=== PATIENT | female | born 1970 | race African-American/Black ===

== ENCOUNTER 2019-09-03 10:51 | Emergency (ER) | payer BC ==
--- NOTE | 2019-09-03 13:51 | RAD REPORT ---
EXAM DESCRIPTION: Raul Single View09/03/2019 1:27 pm CLINICAL HISTORY: Hypertension COMPARISON: none FINDINGS: Left lateral lung base is hazy. The remainder of the lungs appear clear of acute infiltrate. The heart is borderline enlarged IMPRESSION: Left lateral lung base is hazy most likely secondary to overlying soft tissue. If the pa tient has clinical symptoms to suggest a left basilar infiltrate then PA and lateral chest series wou ld be recommended
[2019-09-03 13:53] LABS: Absolute Lymphocytes (CBC) 1.7 K/uL (0.7-4.9); Basophils % 0.6 % (0-1.3); Hematocrit 35.4 % (36.0-45.0); Lymphocytes % 37.6 % (15.3-44.8); MPV 9.1 fL (7.6-11.3); RBC Red Blood Cell Count 4.27 M/uL (3.86-4.86)
[2019-09-03 14:06] LABS: ALT/SGPT 51 U/L (12-78); AST/SGOT 34 U/L (15-37); Albumin 3.7 g/dL (3.4-5.0); Alkaline Phosphatase 48 U/L (45-117); BUN Blood Urea Nitrogen 12 mg/dL (7-18); Bicarbonate 26 mmol/L (21-32); Bilirubin Direct < 0.1 mg/dL (0-0.2); Bilirubin Total 0.3 mg/dL (0.2-1.0); Glucose Level 83 mg/dL (74-106); Magnesium 2.2 mg/dL (1.8-2.4); NT PRO-BNP 102 pg/mL (<125); Sodium Level 142 mmol/L (136-145); Troponin (Emerg Dept Use Only) < 0.02 ng/mL (0.0-0.045)
[2019-09-03] MEDS ORDERED: FUROSEMIDE 20 MG TABLET ONE (14:32)
--- NOTE | 2019-09-03 15:10 | ER ---
Nurse's Notes [facility] Name: Angeles Monte Age: 49 yrs Sex: Female : 1970 Arrival Date: 09/03/2019 Time: 10:55 Bed 4 Private MD: Diagnosis: Hypertensive heart disease;Peripheral Edema Presentation: 09/02 11:12 Chief complaint: Patient states: sent by her PCP for her HTN 210/180. Went to see her sv PCP for BLE swelling, tingling and "black spots on her legs." for 1 week. Coronavirus screen: Proceed with normal triage. Patient denies a cough. Patient denies shortness of breath or difficulty breathing. Patient denies measured and/or subjective temperature greater than 100.4F prior to today's visit. Patient denies travel on a cruise ship or to a country the [facility] currently lists as an affected area. Patient denies contact with known and/or suspected case of COVID-19. Ebola Screen: No symptoms or risks identified at this time. Risk Assessment: Do you want to hurt yourself or someone else? Patient reports no desire to harm self or others. Onset of symptoms was August 27, 2019. 11:12 Method Of Arrival: Ambulatory sv 11:12 Acuity: DANYELL 2 sv 11:15 Initial Sepsis Screen: Does the patient meet any 2 criteria? No. Patient's initial sv sepsis screen is negative. Does the patient have a suspected source of infection? No. Patient's initial sepsis screen is negative. Triage Assessment: 11:15 General: Appears in no apparent distress. comfortable, Behavior is calm, cooperative, sv appropriate for age. Pain: Denies pain. Neuro: Level of Consciousness is awake, alert, obeys commands, Oriented to person, place, time, situation, Gait is steady. Respiratory: Respiratory effort is even, unlabored. 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 - Social history:: Smoking status: Patient denies any tobacco usage or history of. Screenin:44 Abuse screen: Denies threats or abuse. Denies injuries from another. Nutritional iw screening: No deficits noted. Tuberculosis screening: No symptoms or risk factors identified. Fall Risk None identified. Assessment: 13:41 General: Appears in no apparent distress. Behavior is calm, cooperative. Pain: iw Complains of pain in right leg and left leg. Neuro: Level of Consciousness is awake, alert, obeys commands, Oriented to person, place, time, situation, Moves all extremities. Full function. Cardiovascular: Patient's skin is warm and dry. Cardiovascular: Edema. Respiratory: Respiratory effort is even, unlabored, Respiratory pattern is regular, symmetrical. Derm: Skin is intact. Musculoskeletal: Range of motion: intact in all extremities. 14:41 Reassessment: Patient appears in no apparent distress at this time. Patient and/or iw family updated on plan of care and expected duration. Pain level reassessed. Patient is alert, oriented x 3, equal unlabored respirations, skin warm/dry/pink. Vital Signs: 11:15 BP 165 / 106; Pulse 68; Resp 18; Temp 99(TE); Pulse Ox 96% ; Weight 102.51 kg; Height 5 sv ft. 10 in. (177.80 cm); 13:41 BP 157 / 109; Pulse 74; Resp 16; Pulse Ox 100% on R/A; iw 15:27 BP 173 / 102; Pulse 63; Resp 16; Temp 97.7(O); Pulse Ox 99% on R/A; mh5 11:15 Body Mass Index 32.43 (102.51 kg, 177.80 cm) sv ED Course: 10:55 Patient arrived in ED. as 11:12 Arm band placed on. sv 11:14 Triage completed. sv 12:57 Trina Mota, RN is Primary Nurse. iw 13:07 Dany Gomez MD is Attending Physician. kdr 13:27 XRAY Chest (1 view) In Process Unspecified. EDMS 15:25 Patient has correct armband on for positive identification. Placed in gown. Bed in low mh5 position. Call light in reach. Side rails up X 1. Warm blanket given. radiation monitor on. Pulse ox on. NIBP on. 15:26 Initial lab(s) drawn, by ED staff, sent to lab. Urine collected: clean catch specimen, mh5 clear, EKG done, by ED staff, reviewed by Dany Gomez MD. 15:42 IV discontinued, intact, bleeding controlled, No redness/swelling at site. Pressure em dressing applied. 15:45 No provider procedures requiring assistance completed. iw Administered Medications: 14:29 Drug: LaSIX 20 mg Route: PO; iw 15:30 Follow up: Response: No adverse reaction em 15:39 Drug: Norvasc 5 mg Route: PO; iw 15:43 Follow up: Response: Medication administered at discharge. em Outcome: 15:09 Discharge ordered by . kdr 15:42 Discharged to home ambulatory. em 15:42 Condition: good 15:42 Discharge instructions given to patient, Instructed on discharge instructions, follow up and referral plans. medication usage, Demonstrated understanding of instructions, follow-up care, medications, Prescriptions given X 1. 15:45 Patient left the ED. iw Signatures: Dispatcher [employer] Merly Seo, RN Dany Sharif MD MD kdr Munoz, Edgar RN Ange Gandara Irene, RN RN iw Martinez, Maria [facility] Corrections: (The following items were deleted from the chart) 11:18 11:12 Acuity: DANYELL 3 sv sv
--- NOTE | 2019-09-03 15:11 | EDPHYS ---
Physician Documentation [facility] Name: Angeles Monte Age: 49 yrs Sex: Female : 1970 Arrival Date: 09/03/2019 Time: 10:55 Bed 4 Private MD: ED Physician Dany Gomez HPI: 09/02 16:04 This 49 yrs old Black Female presents to ER via Ambulatory with complaints of High kdr Blood Pressure. 16:04 The patient has elevated blood pressure and discovered this at home. Onset: The kdr symptoms/episode began/occurred at an unknown time. The patient went to an appointment earlier today and was noted to be very hypertensive. She was sent to the ED for evaluation and treatment. Her only c/o is slight BRANCH. Modifying factors: The symptoms are aggravated by. 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 - Social history:: Smoking status: Patient denies any tobacco usage or history of. ROS: 16:24 Constitutional: Negative for fever, chills, and weight loss, Eyes: Negative for injury, kdr pain, redness, and discharge, ENT: Negative for injury, pain, and discharge, Neck: Negative for injury, pain, and swelling, Cardiovascular: Negative for chest pain, palpitations, and edema, Respiratory: Negative for shortness of breath, cough, wheezing, and pleuritic chest pain, Abdomen/GI: Negative for abdominal pain, nausea, vomiting, diarrhea, and constipation, Back: Negative for injury and pain, : Negative for injury, bleeding, discharge, and swelling, MS/Extremity: Negative for injury and deformity, Skin: Negative for injury, rash, and discoloration, Neuro: Negative for headache, weakness, numbness, tingling, and seizure activity. Psych: Negative for depression, anxiety, suicide ideation, homicidal ideation, and hallucinations, Allergy/Immunology: Negative for hives, rash, and allergies, Endocrine: Negative for neck swelling, polydipsia, polyuria, polyphagia, and marked weight changes, Hematologic/Lymphatic: Negative for swollen nodes, abnormal bleeding, and unusual bruising. Exam: 15:12 ECG was reviewed by the Attending Physician. kdr 16:24 Constitutional: This is a well developed, well nourished patient who is awake, alert, kdr and in no acute distress. Head/Face: Normocephalic, atraumatic. Eyes: Pupils equal round and reactive to light, extra-ocular motions intact. Lids and lashes normal. Conjunctiva and sclera are non-icteric and not injected. Cornea within normal limits. Periorbital areas with no swelling, redness, or edema. Neck: Trachea midline, no thyromegaly or masses palpated, and no cervical lymphadenopathy. Supple, full range of motion without nuchal rigidity, or vertebral point tenderness. No Meningismus. Chest/axilla: Normal chest wall appearance and motion. Nontender with no deformity. No lesions are appreciated. Cardiovascular: Regular rate and rhythm with a normal S1 and S2. No gallops, murmurs, or rubs. Normal PMI, no JVD. No pulse deficits. Respiratory: Lungs have equal breath sounds bilaterally, clear to auscultation and percussion. No rales, rhonchi or wheezes noted. No increased work of breathing, no retractions or nasal flaring. Abdomen/GI: Soft, non-tender, with normal bowel sounds. No distension or tympany. No guarding or rebound. No evidence of tenderness throughout. Back: No spinal tenderness. No costovertebral tenderness. Full range of motion. Skin: Warm, dry with normal turgor. Normal color with no rashes, no lesions, and no evidence of cellulitis. MS/ Extremity: Pulses equal, no cyanosis. Neurovascular intact. Full, normal range of motion. Neuro: Awake and alert, GCS 15, oriented to person, place, time, and situation. Cranial nerves II-XII grossly intact. Motor strength 5/5 in all extremities. Sensory grossly intact. Cerebellar exam normal. Normal gait. Psych: Awake, alert, with orientation to person, place and time. Behavior, mood, and affect are within normal limits. Vital Signs: 11:15 BP 165 / 106; Pulse 68; Resp 18; Temp 99(TE); Pulse Ox 96% ; Weight 102.51 kg; Height 5 sv ft. 10 in. (177.80 cm); 13:41 BP 157 / 109; Pulse 74; Resp 16; Pulse Ox 100% on R/A; iw 15:27 BP 173 / 102; Pulse 63; Resp 16; Temp 97.7(O); Pulse Ox 99% on R/A; mh5 11:15 Body Mass Index 32.43 (102.51 kg, 177.80 cm) sv MDM: 15:09 Patient medically screened. [facility] 16:24 Data reviewed: vital signs, nurses notes, lab test result(s), EKG, radiologic studies. kdr Counseling: I had a detailed discussion with the patient and/or guardian regarding: the historical points, exam findings, and any diagnostic results supporting the discharge/admit diagnosis, lab results, radiology results, the need for outpatient follow up. 09/02 13:15 Order name: Basic Metabolic Panel; Complete Time: 15:04 [facility] 09/02 13:15 Order name: CBC with Diff; Complete Time: 15: [facility] 09/02 13:15 Order name: LFT's; Complete Time: 15: [facility] 09/02 13:15 Order name: Magnesium; Complete Time: 15: [facility] 09/02 13:15 Order name: NT PRO-BNP; Complete Time: 15:04 [facility] 09/02 13:15 Order name: PT-INR; Complete Time: 15:04 [facility] 09/02 13:15 Order name: Troponin (emerg Dept Use Only); Complete Time: 15:04 [facility] 09/02 13:15 Order name: XRAY Chest (1 view); Complete Time: 15:04 [facility] 09/02 13:15 Order name: EKG; Complete Time: 13:15 [facility] 09/02 13:15 Order name: Cardiac monitoring; Complete Time: 15:22 [facility] 09/02 13:15 Order name: EKG - Nurse/Tech; Complete Time: 15:22 [facility] 09/02 13:15 Order name: IV Saline Lock; Complete Time: 13:39 [facility] 09/02 13:15 Order name: Labs collected and sent; Complete Time: 13:39 [facility] 09/02 13:15 Order name: O2 Per Protocol; Complete Time: 13:39 [facility] 09/02 13:15 Order name: O2 Sat Monitoring; Complete Time: 13:39 kdr EC:12 Rate is 58 beats/min. Rhythm is regular, Sinus bradycardia with No ectopy. QRS [place] is kdr Normal. RI interval is normal. QRS interval is normal. QT interval is normal. Clinical impression: NSR w/ Non-specific ST/T Changes. Administered Medications: 14:29 Drug: LaSIX 20 mg Route: PO; iw 15:30 Follow up: Response: No adverse reaction em 15:39 Drug: Norvasc 5 mg Route: PO; iw 15:43 Follow up: Response: Medication administered at discharge. em Disposition: 09/03/19 15:09 Discharged to Home. Impression: Hypertensive heart disease, Peripheral Edema. - Condition is Stable. - Discharge Instructions: Hypertension, [id number], Peripheral Edema. - Prescriptions for Norvasc 5 mg Oral Tablet - take 1 tablet by ORAL route every 12 hours; 30 tablet. - Medication Reconciliation Form, Thank You Letter form. - Follow up: Private Physician; When: 2 - 3 days; Reason: If symptoms return, Further diagnostic work-up, Recheck today's complaints, Continuance of care, Re-evaluation by your physician. - Problem is an ongoing problem. - Symptoms have improved. Signatures: Dispatcher [employer] Merly Seo RN RN Dany Gomez MD MD [facility] Jeffrey Lopez RN RN em Trina Mota RN RN iw Corrections: (The following items were deleted from the chart) 15:45 15:09 09/03/2019 15:09 Discharged to Home. Impression: Hypertensive heart disease; iw Peripheral Edema. Condition is Stable. Forms are Medication Reconciliation Form, Thank You Letter, Antibiotic Education, Prescription Opioid Use. Follow up: Private Physician; When: 2 - 3 days; Reason: If symptoms return, Further diagnostic work-up, Recheck today's complaints, Continuance of care, Re-evaluation by your physician. Problem is an ongoing problem. Symptoms have improved. kdr
[2019-09-03] MEDS ORDERED: AMLODIPINE 5 MG TAB ONE (15:40)
[2019-09-03 15:50] VITALS: BP 173/102; TEMP 97.7; O2SAT 99
== END 2019-09-03 15:45 | disposition home or self-care (01) ==
LOC: ER 10:51
DX: I11.9 Hypertensive heart disease without heart failure (principal); R60.9 Edema, unspecified
CPT/HCPCS: 36415; 71045; 80048; 80076; 83735; 83880; 84484; 85025; 85610; 93005; 99284